=== PATIENT | female | born 1940 | race Caucasian/White ===

== ENCOUNTER → 2016-12-07 | Outpatient (CLI) | payer OTHER ==
[2015-02-04 08:35] VITALS: BP 132/76
[~2016-12-07] MED LIST: LOVA20TA2 PO; OMEP20CA9 PO
--- NOTE | 2016-12-07 15:29 | RAD ---
DATE: 12/07/2016 EXAM: DIGITAL SCREEN BILAT W/CAD HISTORY: Screening study. COMPARISON: 12/07/2015 This study was interpreted with the benefit of Computerized Aided Detection (CAD). FINDINGS: Digital MLO and CC mammograms of both breasts were obtained. Comparison study is dated 12/07/2015. The breast parenchyma is composed of scattered fibroglandular densities which can obscure a lesion on mammography (breast density code B). Benign-appearing calcifications are seen within both breasts. No spiculated mass is seen. No malignant appearing calcification or area of architectural distortion is noted. IMPRESSION: BI-RADS Category 1, negative. There is no mammographic evidence of malignancy. Routine yearly screening mammography is recommended for follow-up. BI-RADS CATEGORY: 1 NEGATIVE RECOMMENDED FOLLOW-UP: 12M 12 MONTH FOLLOW-UP PQRS compliance statement: Patient information was entered into a reminder system with a target due date 12/07/2017 for the next mammogram. Mammography is a sensitive method for finding small breast cancers, but it does not detect them all and is not a substitute for careful clinical examination. A negative mammogram does not negate a clinically suspicious finding and should not result in delay in biopsying a clinically suspicious abnormality. "Our facility is accredited by the [employer] Mammography Program."
== END | disposition home or self-care (01) ==
LOC: MAMMO 14:01
PROVIDERS: ATTEND Family Medicine
DX: Z12.31 Encounter for screening mammogram for malignant neoplasm of breast (principal)
CPT/HCPCS: G0202; 77067

== ENCOUNTER 2017-03-12 01:31 | Emergency (ER) | payer OTHER ==
[~2017-03-12] VITALS: Ht 160 cm; Wt 74.8 kg
--- NOTE | 2017-03-12 01:44 | PHYS DOC ---
Past Medical History Past Medical History: Diverticulosis, GERD, High Cholesterol Past Surgical History: Appendectomy, Hysterectomy, Tonsillectomy Past Surgical History Cataract Additional Information: non smoker Adult General Chief Complaint Chief Complaint: ALLERGIC REACTION HPI HPI Patient is a 76 year old female who presents with family member for allergic reaction and fall. She's had multiple episodes where she'll develop diffuse redness and allergic reaction after eating. She's not able to determine what foods to precipitate these events. Tonight she went to bed usual time around 8 PM she took Tylenol PM so "I can sleep really well tonight". She then awakened at around midnight started itching on her hands and feet. She states this is what usually happens when she develops her allergic reaction. She got up to get some more Benadryl , 2 tablets at 0015 AM. She then was walking back to the bed felt a little dizzy and lightheaded and fell back against it on her bottom and hit her back against the bed. Did not strike her head or loss of consciousness. She called family member at 0044 AM. She states she feels a little funny in her throat, no drooling however able to handle secretions well. She has diffuse redness of her body but no shortness of air or wheezing critical to breathing. She is still itching however. Denies any new medications, no anabolic treatment recently. She is followed by Dr Jovel. Review of Systems Review of Systems Constitutional: Denies fever or chills Eyes: Denies change in visual acuity, redness, or eye pain HENT: Denies nasal congestion or sore throat;"irritated throat." no voice change. Respiratory: Denies cough or shortness of breath; no wheezing Cardiovascular: No chest pain GI: Denies abdominal pain, nausea, vomiting, bloody stools or diarrhea : Denies dysuria or hematuria Musculoskeletal: POS back pain but no joint pain Integument: diffuse redness and itching Neurologic: Denies headache, focal weakness or sensory changes; NO LOC. Some dizziness. Current Medications Current Medications Current Medications Medications (Trade) Dose Ordered Sig/Eitan Start Time Stop Time Status Last Admin Dose Admin Famotidine (Pepcid) 20 mg 1X ONCE 03/12/17 02:00 03/12/17 02:01 Methylprednisolone Acetate (DEPO-Medrol 80MG VIAL) 80 mg 1X ONCE 03/12/17 02:00 03/12/17 02:01 Allergies Allergies Allergies Coded Allergies Type Severity Reaction Last Updated Verified No Known Allergies Allergy Unknown 02/03/15 Yes Physical Exam Physical Exam Constitutional: Well developed, well nourished, no acute distress, non-toxic appearance. Ambulatory upon arrival. HENT: Normocephalic, atraumatic, bilateral external ears normal, oropharynx moist, no oral exudates, nose normal. No drooling, uvula without swelling. No tongue or lip swelling. No voice change. Eyes: PERRLA, EOMI, conjunctiva normal, no discharge. Neck: Normal range of motion, no tenderness, supple, no stridor. Cardiovascular:Heart rate regular rhythm, no murmur Lungs & Thorax: Bilateral breath sounds clear to auscultation, no wheezing. No crepitance noted no rib pain on palpation. Abdomen: Bowel sounds normal, soft, no tenderness, no masses, no pulsatile masses. Skin: Warm, dry, no erythema. Diffuse hyperemia noted particularly over her trunk and upper extremities. Feet and lower legs involved. Back: Abrasion over the mid thoracic area. She is tender to the right para thoracic area just inferior to the scapular border. She is not tender over palpation of her vertebral spinous processes. No crepitance or step-off. Extremities: No tenderness, no cyanosis, no clubbing, ROM intact, no edema. Neurologic: Alert and oriented X 3, normal motor function, normal sensory function, no focal deficits noted. Current Patient Data Vital Signs Vital Signs Date Time Temp Pulse Resp B/P (MAP) Pulse Ox O2 Delivery O2 Flow Rate FiO2 03/12/17 01:45 97.5 77 18 98 Room Air 97.5 Radiology/Procedures Radiology/Procedures Thoracic spine x-rays were interpreted by myself at 020 5 AM. Osteophytes noted and degenerative changes but no acute fracture noted. Course & Med Decision Making Course & Med Decision Making Patient with acute allergic reaction. No airway compromise at this time. Unclear etiology. She states this is happening more than once an extra quite frequently after she eats certain foods. Encouraged her to keep a food diary as this could progress. He took Benadryl, Pepcid was dosed here by mouth and then Depo-Medrol IM. Rest x-rays were obtained but no evidence of any acute fracture. She is given precautions and placed on Pepcid and steroid pack outpatient. She is to call Dr. Jovel on Monday. At 0215 AM: patient is improved. No airway compromise. I have spoken with the patient and/or caregivers. I have explained the patient' s condition, diagnosis and treatment plan based on the information available to me at this time. I have answered the patient's and/or caregiver's questions and addressed any concerns. The patient and/or caregivers have as good an understanding of the patient's diagnosis, condition and treatment plan as can be expected at this point. The patient's condition is stable and appropriate for discharge from the emergency department. The patient will pursue further outpatient evaluation with the primary care physician or other designated or consulting physician as outlined in the discharge instructions. The patient and/or caregivers are agreeable to this plan of care and follow-up instructions have been explained in detail. The patient and/or caregivers have received these instructions in written format and have expressed an understanding of the discharge instructions. The patient and/or caregivers are aware that any significant change in condition or worsening of symptoms should prompt an immediate return to this or the closest emergency department or a call to 911. Dragon Disclaimer Dragon Disclaimer This electronic medical record was generated, in whole or in part, using a voice recognition dictation system. Departure Departure Impression: Primary Impression: Allergic reaction Additional Impressions: Fall Contusion of right back wall of thorax, initial encounter Disposition: 01 HOME, SELF-CARE Condition: STABLE Referrals: ALBA JOVEL MD (PCP) Patient Instructions: Drug Allergy, [id number] Additional Instructions: Contact Dr. Jovel's office on Monday. You need to be rechecked for your reaction. Keep a food diary to monitor potential food that are precipitating this reaction. Take the Pepcid twice a day, start the prednisone tablets in the morning. Be cautious taking the Benadryl as it will make you dizzy and lightheaded and will precipitate falls. Claritin (drnc-kuz-nwpztih loratadine) 10 mg once a day would be a safer alternative for you. Scripts Methylprednisolone (MEDROL) 4 Mg Tab.ds.pk 1 PKG PO UD, #1 PKG Prov: TALIA MARIE MD 03/12/17 Famotidine (PEPCID) 20 Mg Tablet 20 MG PO BID for 10 Days, #20 TAB Prov: TALIA MARIE MD 03/12/17 Problem Qualifiers Primary Impression: Allergic reaction Encounter type: initial encounter Qualified Codes: T78.40XA - Allergy, unspecified, initial encounter Additional Impressions: Fall Encounter type: initial encounter Qualified Codes: W19.XXXA - Unspecified fall, initial encounter TALIA MARIE MD Mar 12, 2017 01:44
[2017-03-12 01:45] VITALS: BP 148/65
[2017-03-12] MEDS ORDERED: FAMOTIDINE 20 MG TABLET. PO ONE (02:00)
[2017-03-12] MEDS ORDERED: methylPREDNISolone ACETATE 80 MG/ML VIAL. IM ONE (02:00)
[2017-03-12] MEDS ORDERED: FAMO-63 PO (02:13)
[2017-03-12] MEDS ORDERED: METH4TAB2 PO (02:13)
--- NOTE | 2017-03-12 08:04 | RAD ---
Thoracic spine radiograph 03/12/2017 at 1:47 AM Indication: Back pain Comparison: None available Technique: 3 views of the thoracic spine are provided. Findings: There is mild dextroconvex curvature of the thoracic spine. There is mild exaggerated kyphosis of the thoracic spine centered at T6-T7. There is mild height loss involving T6 with anterior wedging, which may be chronic. Moderate cervical spondylosis is noted in the mid to lower cervical spine. No acute fracture is identified. Right lung is clear. There is a 9 mm calcified granuloma in the left midlung. Impression: 1. Mild dextroconvex scoliosis with mild exaggerate the first of the thoracic spine. 2. Mild height loss involving suspected T6 vertebral level may be chronic. Correlate with site of point tenderness or recent trauma.
== END 2017-03-12 02:20 | disposition home or self-care (01) ==
LOC: ER 01:31
DX: T78.1XXA Other adverse food reactions, not elsewhere classified, initial encounter (principal); S20.221A Contusion of right back wall of thorax, initial encounter; E78.00 Pure hypercholesterolemia, unspecified; K21.9 Gastro-esophageal reflux disease without esophagitis; Z98.49 Cataract extraction status, unspecified eye; W18.39XA Other fall on same level, initial encounter; Y93.89 Activity, other specified; Y92.89 Other specified places as the place of occurrence of the external cause; Y99.8 Other external cause status; X58.XXXA Exposure to other specified factors, initial encounter
CPT/HCPCS: 72072; 96372; 99284; J1040